=== PATIENT | female | born 1960 | race Caucasian/White ===

== ENCOUNTER 2020-05-26 13:40 | Emergency (ER) | payer OTHER, BC, SELFPAY ==
--- NOTE | ~2020-05-26 | XR_ITS ---
EXAMINATION: XR ankle RT min 3V EXAM DATE: 05/26/2020 14:44 INDICATION: Cart fell onto rt ankle left proximal tib/fib. Pain, initial encounter. TECHNIQUE: Right ankle frontal, lateral and oblique projections obtained and reviewed. There is no p rior study for comparison. FINDINGS: The right ankle mortise appears intact. Sequela from prior lateral malleolar avulsion inj ury. Tiny calcaneal spurs. There are no acute fractures or dislocations identified. There is no subc utaneous gas. The soft tissue is unremarkable. There are no radiopaque foreign bodies. IMPRESSION: 1. Right ankle exam without acute osseous findings. Reviewed, dictated and finalized at location A.
--- NOTE | ~2020-05-26 | XR_ITS ---
EXAMINATION: XR tibia fibula LT 2V EXAM DATE: 05/26/2020 14:44 INDICATION: Cart fell onto left tib fib. Pain, initial encounter. TECHNIQUE: Left tibia/fibula frontal and lateral projections obtained and reviewed. There is no prio r study for comparison. FINDINGS: Left tibial and fibular shafts unremarkable. There are no acute fractures or dislocatio ns identified. There is no subcutaneous gas. The soft tissue is unremarkable. There are no radiop aque foreign bodies. IMPRESSION: 1. Left tibia-fibula exam without acute osseous findings. Reviewed, dictated and finalized at location A.
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
[2020-05-26 14:12] VITALS: BP 120/86; PULSE 62; RESP 16; TEMP 37; O2SAT 99
== END 2020-05-26 15:17 | disposition home or self-care (01) ==
PROVIDERS: Emergency Provider Nurse Practitioner
DX: M79.661 Pain in right lower leg (principal); S90.01XA Contusion of right ankle, initial encounter; W22.8XXA Striking against or struck by other objects, initial encounter; S80.02XA Contusion of left knee, initial encounter; K21.9 Gastro-esophageal reflux disease without esophagitis; I25.2 Old myocardial infarction; Z95.810 Presence of automatic (implantable) cardiac defibrillator; Z79.01 Long term (current) use of anticoagulants
CPT/HCPCS: 73590; 73610; 99213; G0463